=== PATIENT | male | born 1990 | race Caucasian/White ===

== ENCOUNTER 2023-11-13 16:04 | Emergency (ER) | payer OTHER, SELFPAY ==
[2023-11-13] VITALS (13 sets, daily range): BP systolic 125–128; BP diastolic 64–78; PULSE 60–69; RESP 18; TEMP 36.4; O2SAT 90–100; BMI 29.4
--- NOTE | 2023-11-13 16:53 | CRLHL7_ITS ---
For Patients: As a result of the Cures Act, medical imaging exams and procedure reports are released immediately into your electronic medical record. You may view this report before your referring provider. If you have questions, please contact your health care provider. INDICATION: Chest pain. TECHNIQUE: Chest 2 views. COMPARISON: None. FINDINGS: Cardiovascular and mediastinum: Heart size and vasculature are normal in caliber and appearance. Lungs and pleural spaces: Lungs are clear. No sign of infiltrate or mass. No sign of pleural effusion. No pneumothorax. Bones and soft tissues: No significant findings. IMPRESSION: No acute or significant findings. Dictated by Keyur Hidalgo MD @ 11/13/2023 6:15:35 PM (Electronically Signed)
[2023-11-13 17:09] LABS: Basophils Absolute Auto 0.05 K/uL (0.00-0.30); Basophils Percent Auto 0.5 % (0.0-3.0); Eosinophils Absolute Auto 0.19 K/uL (0.00-0.50); Immature Granulocytes Abs Auto 0.01 K/uL (0.00-0.30); Immature Granulocytes Pct Auto 0.1 %; Lymphocytes Absolute Auto 3.01 K/uL (0.90-2.90); Lymphocytes Percent Auto 32.2 % (20-44); Mean Corpuscular HGB Conc 34 gm/dL (32-36); Mean Corpuscular Hemoglobin 30 pg (26-34); Mean Corpuscular Volume 88 fL (80-100); Monocytes Percent Auto 7.7 % (0.0-11.0); Neutrophils Absolute Auto 5.38 K/uL (1.7-7.0); Neutrophils Percent Auto 57.5 % (42.0-72.0); Platelet Count* 358 K/uL (140-440); RDW Coefficient of Variation % 11.8 % (11.5-15.5); Red Blood Count 4.99 m/uL (4.30-5.90); White Blood Count* 9.36 K/uL (4.50-11.00)
[2023-11-13] MEDS: KETOROLAC 15 MG/ML inj IVP (17:10)
[2023-11-13 17:11] LABS: Slide Review Reflex No
[2023-11-13 17:24] LABS: Chloride* 104 mmol/L (96-114)
[2023-11-13 17:25] LABS: Potassium* 4.1 mmol/L (3.6-5.1); Sodium* 138 mmol/L (135-149)
[2023-11-13 17:27] LABS: Creatinine* 0.8 mg/dL (0.5-1.5); Estimated Glomerular Filt Rate 119 ml/min
[2023-11-13 17:28] LABS: Anion Gap 12 mEq/L (7-15); Blood Urea Nitrogen* 12 mg/dL (5-24); Calcium* 9.8 mg/dL (8.4-10.6); Carbon Dioxide* 22 mmol/L (20-32); Glucose* 95 mg/dL (60-115)
[2023-11-13 17:54] LABS: PCR FLU A Negative PCR FLU A (Negative); PCR FLU B Negative PCR FLU B (Negative); PCR RSV Negative PCR RSV (Negative); SARS PCR* Negative SARS-CoV-2 (Negative)
--- NOTE | 2023-11-13 18:12 | ED_ITS ---
HPI - Chest Pain General Date Seen: 11/13/23 Chief Complaint: Chest Pain Stated Complaint: chest pain, trouble breathing Time Seen by Provider: 11/13/23 16:32 Source: patient Mode of arrival: ambulatory Limitations: no limitations History of Present Illness HPI narrative: Patient is a 33-year-old male presenting to the emergency department for left- sided chest pain. Symptoms started last night when he picked up his kid. Is of left-sided seems constant in nature. Describes as sharp sensation. Has never had pain like this before. Nothing seems to make the pain better or worse. Did take aspirin prior to arrival. Denies shortness of breath, abdominal pain, headache, vision changes, lightheadedness, dizziness, weakness, numbness. No history of blood clots, no recent surgeries. No history of cancer. Has not had any cough or hemoptysis. No unilateral leg swelling. He is concerned case he has family history of heart disease. Does state it is painful to take a deep breath. No other concerns noted at this time. Related Data Home Medications Medication Instructions Recorded Confirmed No Known Home Medications 11/13/23 11/13/23 Allergies Allergy/AdvReac Type Severity Reaction Status Date / Time oxycodone Allergy Severe Vomiting Verified 11/13/23 16:37 Review of Systems Status of ROS Reports: 10 or more systems reviewed and unremarkable except as noted in History and below Exam Narrative Exam Narrative: Const: Well-nourished, Well-developed, in mild distress Eyes: PERRL, no conjunctival injection, and symmetrical lids HENT: Atraumatic external nose and ears. Moist mucous membranes. Neck: Symmetric, trachea midline, No thyromegaly. CVS: RRR, No murmurs or gallops. Peripheral pulses 2+ and equal in all extremities RESP: Unlabored respiratory effort. Clear to auscultation bilaterally. GI: Nontender/Nondistended, No rebound or guarding. MSK:Extremities w/o deformity, Normal Active ROM, chest is nontender to palpa tion Skin: Warm, Dry. No rashes or lesions. Neuro: Normal Muscle tone, No focal neurological deficits. Psych: Awake, Alert, & Oriented x3. Appropriate mood and affect. Const Vital Signs, click to edit/add: Vital Signs - 24 hr 11/13/23 16:32 11/13/23 16:46 11/13/23 17:05 Temperature 97.6 F Pulse Rate 64 60 Pulse Rate [Left Pulse Oximeter] 69 Respiratory Rate 18 Blood Pressure Blood Pressure [Left Upper Arm] 125/78 Pulse Oximetry 100 97 98 Oxygen Delivery Method Room Air 11/13/23 17:06 11/13/23 17:15 11/13/23 17:30 Temperature Pulse Rate 61 60 61 Pulse Rate [Left Pulse Oximeter] Respiratory Rate Blood Pressure 128/64 Blood Pressure [Left Upper Arm] Pulse Oximetry 95 96 97 Oxygen Delivery Method 11/13/23 17:45 11/13/23 18:00 11/13/23 18:15 Temperature Pulse Rate 61 64 63 Pulse Rate [Left Pulse Oximeter] Respiratory Rate Blood Pressure Blood Pressure [Left Upper Arm] Pulse Oximetry 97 96 98 Oxygen Delivery Method 11/13/23 18:30 11/13/23 18:46 11/13/23 19:02 Temperature Pulse Rate 62 61 64 Pulse Rate [Left Pulse Oximeter] Respiratory Rate Blood Pressure Blood Pressure [Left Upper Arm] Pulse Oximetry 98 90 97 Oxygen Delivery Method 11/13/23 19:15 Temperature Pulse Rate 61 Pulse Rate [Left Pulse Oximeter] Respiratory Rate Blood Pressure Blood Pressure [Left Upper Arm] Pulse Oximetry 98 Oxygen Delivery Method Course Vital Signs Vital signs: Initial Vital Signs Temperature 97.6 F 11/13/23 16:32 Temperature Source Temporal Artery Scan 11/13/23 16:32 Pulse Rate 69 11/13/23 16:32 Pulse Rhythm Regular 11/13/23 16:32 Respiratory Rate 18 11/13/23 16:32 Blood Pressure 125/78 11/13/23 16:32 Blood Pressure Mean 93 11/13/23 16:32 Pulse Oximetry 100 11/13/23 16:32 Oxygen Delivery Method Room Air 11/13/23 16:32 Vital Signs Temperature 97.6 F 11/13/23 16:32 Pulse Rate 69 11/13/23 16:32 Respiratory Rate 18 11/13/23 16:32 Blood Pressure 125/78 11/13/23 16:32 Pulse Oximetry 100 11/13/23 16:32 Oxygen Delivery Method Room Air 11/13/23 16:32 Temperature 97.6 F 11/13/23 16:32 Pulse Rate 61 11/13/23 19:15 Respiratory Rate 18 11/13/23 16:32 Blood Pressure 128/64 11/13/23 17:06 Pulse Oximetry 98 11/13/23 19:15 Oxygen Delivery Method Room Air 11/13/23 16:32 Medications Administered Medications: Discontinued Medications Generic Name Dose Route Start Last Admin Trade Name Edson PRN Reason Stop Dose Admin Ketorolac Tromethamine 15 mg 11/13/23 16:53 11/13/23 17:10 Ketorolac 15 Mg/Ml Inj IVP 11/13/23 16:54 15 mg ONCE ONE Administration MDM - Chest Pain MDM Narrative Medical decision making narrative: Patient is a 33-year-old male presenting to emergency department for chest pain. Pain is left-sided sharp in nature. Seems unlikely for ACS with his age but we will evaluate him for it with an EKG, troponin. Also ordered CBC, CMP, COVID/flu/RSV. He is PERC negative and thus unlikely to have a PE. Toradol given for pain. EKG returned showing no concerning findings. There is some slight ST elevation but this appears to be early repolarization and not a STEMI. Lab work returned showing no concerning abnormalities. Repeat troponin was also within normal limits. He is otherwise doing well in this seems unlikely to be ACS. Chest x- ray showed no signs of pneumonia or pneumothorax. He can be discharged home he is agreeable to this plan. Lab Data Labs: Lab Results 11/13/23 11/13/23 11/13/23 Range/Units 16:40 16:53 17:06 WBC 9.36 (4.50-11.00) K/uL RBC 4.99 (4.30-5.90) m/uL Hgb 15.0 (13.5-17.5) gm/dL Hct 44.0 (37.0-53.0) % MCV 88 (80-100) fL MCH 30 (26-34) pg MCHC 34 (32-36) gm/dL RDW Coeff of Maye 11.8 (11.5-15.5) % Plt Count 358 (140-440) K/uL Neut % (Auto) 57.5 (42.0-72.0) % Lymph % (Auto) 32.2 (20-44) % [place] % (Auto) 7.7 (0.0-11.0) % Eos % (Auto) 2.0 (0.0-7.0) % Baso % (Auto) 0.5 (0.0-3.0) % Neut # (Auto) 5.38 (1.7-7.0) K/uL Lymph # (Auto) 3.01 H (0.90-2.90) K/uL [place] # (Auto) 0.70 (0.00-0.90) K/UL Eos # (Auto) 0.19 (0.00-0.50) K/uL Baso # (Auto) 0.05 (0.00-0.30) K/uL Abs Immat Gran (auto) 0.01 (0.00-0.30) K/uL Imm/Tot Granulo (auto) 0.1 % Sodium 138 (135-149) mmol/L Potassium 4.1 (3.6-5.1) mmol/L Chloride 104 (96-114) mmol/L Carbon Dioxide 22 (20-32) mmol/L Anion Gap 12 (7-15) mEq/L BUN 12 (5-24) mg/dL Creatinine 0.8 (0.5-1.5) mg/dL Estimated Creat Clear 155.50 Estimated GFR 119 ml/min Glucose 95 (60-115) mg/dL Calcium 9.8 (8.4-10.6) mg/dL SARS-CoV-2 (PCR) Negative SARS-CoV-2 (Negative) Influenza Type A (PCR) Negative PCR FLU A (Negative) Influenza Type B (PCR) Negative PCR FLU B (Negative) RSV (PCR) Negative PCR RSV (Negative) Lab Acknowledgement Test Added POC Troponin I 0.00 L (0.01-0.04) ng/ml 11/13/23 Range/Units 19:00 WBC (4.50-11.00) K/uL RBC (4.30-5.90) m/uL Hgb (13.5-17.5) gm/dL Hct (37.0-53.0) % MCV (80-100) fL MCH (26-34) pg MCHC (32-36) gm/dL RDW Coeff of Maye (11.5-15.5) % Plt Count (140-440) K/uL Neut % (Auto) (42.0-72.0) % Lymph % (Auto) (20-44) % [place] % (Auto) (0.0-11.0) % Eos % (Auto) (0.0-7.0) % Baso % (Auto) (0.0-3.0) % Neut # (Auto) (1.7-7.0) K/uL Lymph # (Auto) (0.90-2.90) K/uL [place] # (Auto) (0.00-0.90) K/UL Eos # (Auto) (0.00-0.50) K/uL Baso # (Auto) (0.00-0.30) K/uL Abs Immat Gran (auto) (0.00-0.30) K/uL Imm/Tot Granulo (auto) % Sodium (135-149) mmol/L Potassium (3.6-5.1) mmol/L Chloride (96-114) mmol/L Carbon Dioxide (20-32) mmol/L Anion Gap (7-15) mEq/L BUN (5-24) mg/dL Creatinine (0.5-1.5) mg/dL Estimated Creat Clear Estimated GFR ml/min Glucose (60-115) mg/dL Calcium (8.4-10.6) mg/dL SARS-CoV-2 (PCR) (Negative) Influenza Type A (PCR) (Negative) Influenza Type B (PCR) (Negative) RSV (PCR) (Negative) Lab Acknowledgement POC Troponin I 0.00 L (0.01-0.04) ng/ml Imaging Data Chest x-ray: Radiologist's impression: No acute or significant findings. Dictated by Keyur Hidalgo MD @ 11/13/2023 6:15:35 PM ECG Data Attestation: I personally reviewed and interpreted this ECG as follows: Prior ECG tracings: not available for review Interpretation: Normal sinus rhythm the rate 62 beats per minute, normal intervals, normal axis, no T-wave abnormalities. There was some slight ST elevation most likely due to early repolarization Discharge Plan Discharge Clinical Impression: Atypical chest pain Patient Disposition: Home, Self-Care Condition: Stable Instructions: Noncardiac Chest Pain (ED) Additional Instructions: Take Tylenol and ibuprofen for pain. Return to emergency department for new or worsening symptoms. If symptoms persist follow-up with your primary care provider. Prescriptions: No Action No Known Home Medications Follow Up/Referrals: Provider,Not a Local [Primary Care Provider] - Stand Alone Forms: [employer] Info Instructions
== END 2023-11-13 19:39 | disposition home or self-care (01) ==
PROVIDERS: Emergency Provider Student in an Organized Health Care Education/Training Program
DX: R07.9 Chest pain, unspecified (principal)
CPT/HCPCS: 36415; 71046; 80048; 84484; 85025; 87631; 93005; 96374; 99283; 99284; J1885

== ENCOUNTER 2023-11-15 13:55 | Outpatient (CLI) | payer OTHER, SELFPAY | END 2023-11-15 13:56 | disposition home or self-care (01) | PROVIDERS: PCP Nurse Practitioner Family; Visit Provider Nurse Practitioner Family | DX: Z13.220 Encounter for screening for lipoid disorders (principal); Z82.49 Family history of ischemic heart disease and other diseases of the circulatory system | CPT/HCPCS: 80061; 83695 ==

== ENCOUNTER 2024-05-28 11:49 | Emergency (ER) | payer OTHER, SELFPAY ==
[2024-05-28 12:00] VITALS: BP 113/67; PULSE 87; RESP 18; TEMP 36.4; O2SAT 96; BMI 27.5
--- NOTE | 2024-05-28 12:25 | ED_ITS ---
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 Notes that he was in the sun and that is when it seemed to appear. Not currently on any antibiotics. Does note that he works outside finding [employer] and that on Tuesday or 3 days ago he was sitting down in a ditch that had recently been cut and mowed. He is fairly certain that there was wild parsnip in the area. He was sweating quite a bit. This is never happened to him before. He did not have a history of a significant reaction to poison oscar or poison oak. He is not having any difficulty breathing swelling of the mucous membranes fevers or chills. Denies a sore throat or recent illness. He has not taken any medications including antihistamines at this time. Related Data Home Medications ?Medication ?Instructions ?Recorded ?Confirmed No Known Home Medications 05/28/24 05/28/24 Allergies Allergy/AdvReac Type Severity Reaction Status Date / Time oxycodone Allergy Severe Vomiting Verified 05/28/24 11:59 Review of Systems Status of ROS: Reports: 10 or more systems reviewed and unremarkable except as noted in History and below Const: Denies: fever or chills Eyes: Denies: eye discomfort or eye discharge ENMT: Denies: throat pain or nasal congestion Cardio: Denies: chest pain or shortness of breath with exertion Resp: Denies: shortness of breath GI: Denies: abdominal pain or nausea Integ/Breast: Reports: rash, redness and sores Neuro: Denies: headache PFSH PFSH Social History Smoking Status: Never smoker How often do you have a drink containing alcohol: never How often do you have six or more drinks on one occasion: Never AUDIT-C Alcohol total score: 0 Non-prescribed substance use: denies use Exam Narrative: Exam Narrative: Alert and oriented. Face is normal with no evidence evidence of swelling of the mucous membranes are lips. Mentation normal. Patient noted to have raised areas of erythema on the right elbow that is actively draining without significant surrounding erythema he has a papular rash noted on both of his knees as well as his low back and between his buttocks upper gluteal folds. There is no significant swelling surrounding this. On his left arm he has a linear 4 cm area of raised rash that is blistering. Const: Vital Signs, click to edit/add: Vital Signs - 24 hr 05/28/24 12:00 Temperature 97.6 F Pulse Rate [Pulse Oximeter] 87 Respiratory Rate 18 Blood Pressure [Ri ght Upper Arm] 113/67 Pulse Oximetry 96 Oxygen Delivery Me thod Room Air Documenting provider has reviewed patient's vital signs: yes Course Course ED Course: Differential diagnosis includes but is not limited to contact dermatitis from plan source. Given the rashes appearance I do not think that this is poison oak, erythema migrans erythema multiforma Vital Signs Vital signs: Initial Vital Signs Temperature 97.6 F 05/28/24 12:00 Temperature Source Temporal Artery Scan 05/28/24 12:00 Pulse Rate 87 05/28/24 12:00 Pulse Rhythm Regular 05/28/24 12:00 Respiratory Rate 18 05/28/24 12:00 Blood Pressure 113/67 05/28/24 12:00 Blood Pressure Mean 82 05/28/24 12:00 Blood Pressure Position Sitting 05/28/24 12:00 Pulse Oximetry 96 05/28/24 12:00 Oxygen Delivery Method Room Air 05/28/24 12:00 Vital Signs Temperature 97.6 F 05/28/24 12:00 Pulse Rate 87 05/28/24 12:00 Respiratory Rate 18 05/28/24 12:00 Blood Pressure 113/67 05/28/24 12:00 Pulse Oximetry 96 05/28/24 12:00 Oxygen Delivery Method Room Air 05/28/24 12:00 Temperature 97.6 F 05/28/24 12:00 Pulse Rate 87 05/28/24 12:00 Respiratory Rate 18 05/28/24 12:00 Blood Pressure 113/67 05/28/24 12:00 Pulse Oximetry 96 05/28/24 12:00 Oxygen Delivery Method Room Air 05/28/24 12:00 MDM - Skin/Abscess/Foreign Bdy MDM Narrative Medical decision making narrative: 1. Contact dermatitis-most likely source is wild franny. The area of the buttocks at that also has increased erythema likely from sweat from the low back as he had been sitting in the ditch. Notice that the contact was on TuesdayMay 25 and this did not appear until he was exposed to sunlight yesterday. This would be consistent with while parsnip. Patient has not taken any antihistamines. Will place him on Zyrtec 10 mg p.o. b.i.d. x3 days. Will also start him on prednisone 40 mg daily for the next 5 days. This was put into our [employer] machine. Asked that he remain out of the sun for the next 72 hours. 2. Disposition-home at this time. Have also suggested Aveeno or oatmeal baths for soothing. No evidence of cellulitis at this time and have impressed upon him to limit itching of this area. Of course should he develop swelling of the mucous membranes, fever chills or worsening symptoms would ask that he return to the emergency room for further evaluation. Medical Records Attestation: I reviewed the patient's medical records. Discharge Plan Discharge Clinical Impression: Contact dermatitis Patient Disposition: Home, Self-Care Condition: Unchanged Additional Instructions: 1. Zyrtec is an antihistamine. I would like you to take 10 mg twice a day up to and including Tuesday. Do not drink alcohol if on an antihistamine as this may cause a rapid heart rate. 2. Prednisone is used as an anti-inflammatory and immune system gene in this case. I have created prescription for are [employer] machine in the front lobby. Take with food. 3. 1% hydrocortisone cream-apply to the affected areas twice a day. Aveeno bath or oatmeal bath this may be helpful to cooled the areas of irritation down. I would like you to stay out of the light for the next 72 hours. I have written a note for you to be off work until . Please return for worsening symptoms. Prescriptions: No Action No Known Home Medications Follow Up/Referrals: Mer Castorena, SENIOR SECURITY ENGINEER, SYSTEMS DEVELOPMENT MANAGER [Primary Care Provider] - Stand Alone Forms: [employer] Info Instructions
== END 2024-05-28 13:05 | disposition home or self-care (01) ==
LOC: ED 12:55
PROVIDERS: Emergency Provider Family Medicine; PCP Nurse Practitioner Family
DX: L25.5 Unspecified contact dermatitis due to plants, except food (principal)
CPT/HCPCS: 99283

== ENCOUNTER 2024-11-16 07:05 | Outpatient (CLI) | payer BC, SELFPAY | END 2024-11-16 07:06 | disposition home or self-care (01) | LOC: MRI 07:06 | PROVIDERS: PCP Nurse Practitioner Family; Visit Provider Nurse Practitioner Family | DX: M54.50 Low back pain, unspecified (principal); M51.26 Other intervertebral disc displacement, lumbar region; M51.27 Other intervertebral disc displacement, lumbosacral region; M46.1 Sacroiliitis, not elsewhere classified | CPT/HCPCS: 72148 ==